=== PATIENT | female | born 1985 | race Caucasian/White ===

== ENCOUNTER → 2020-12-19 | Outpatient (CLI) | payer OTHER ==
[~2020-12-19] MED LIST: ACET325UDC PO; ACETAMINOPHEN160 MG SL; AMOCLA250S PO; CALCA500CH PO; CODACEE120 PO; HYDACE5 PO; IBUP100S PO; IBUP800 PO; MORP30; MULVITMIND PO; Prevacid Soluta30 MG PO; SACC250C PO; WHEELCHAIR USE
[2020-12-19 11:45] LABS: Source, Urine Clean Catch
[2020-12-19 13:29] LABS: Appearance, Urine Clear (Clear); Bilirubin, Urine Neg (Neg); Blood, Urine Neg (Neg); Color, Urine Yellow (P-Yellow); Glucose Qualitative, Urine Neg (Neg); Ketones, Urine Neg (Neg); Leukocyte Esterase, Urine Neg (Neg); Nitrite, Urine Neg (Neg); Protein, Urine Neg (Neg); Specific Gravity, Urine 1.015 (1.003-1.022); Urobilinogen, Urine NORM (Normal)
== END | disposition home or self-care (01) ==
LOC: LAB SHORT 11:42 → LAB 11:42
PROVIDERS: Family Medicine
DX: R30.9 Painful micturition, unspecified (principal)
CPT/HCPCS: 81003

== ENCOUNTER 2023-01-13 06:37 | Day surgery (SDC) | payer OTHER ==
[~2023-01-13] VITALS: Ht 139.7 cm; Wt 57.2 kg
[2023-01-13] MEDS ORDERED: NAC600 MG (06:51)
[2023-01-13] MEDS ORDERED: MINASTRIN 24 F1 EAC1 (06:52)
[2023-01-13 09:03] VITALS: BP 127/79
--- NOTE | 2023-01-13 09:15 | NUR ---
01/13/23 0915 Alis Shelby PT AWAKE, ALERT, ORIENTED AFTER PROCEDURE. CARMELITA LUNG SOUNDS WITH CRACKLES. O2 SATS MAINTAINIG 90-91% ON RA WITH NORMAL BREATHING. INCREASING TO 95-97% WITH DEEP BREATHING AND COUGHING. PER DR GAUTHIER, ALBUTEROL NEBULIZER TREATMENT DONE. O2 SATS MAINTAINING 98-100%. LUNG SOUNDS CLEARER. INCENTIVE SPIROMETER GIVEN AND MOM STATES THEY KNOW HOW TO USE IT.
--- NOTE | 2023-01-13 15:00 | NUR ---
01/13/23 1500 Madisyn De La Fuente PT BEGAN TO QUICKLY DESAT 2 MINUTES INTO PROCEDURE. BEGAN BAGGING PT AND CALLED FOR ANESTHESIA. PT O2 SAT AT 55% AND PT WAS CYANTOTIC. BAGGING WAS NOT EFFECTIVE IN RAISING O2 LEVELS. DR GOINS IN ROOM, PLACES LMA. PREPARING FOR INTUBATION, BUT O2 LEVELS BEGAN TO INCREASE. PT RETURNS TO BASELINE VITALS AND SKIN COLOR. PT WAKES AND LMA IS REMOVED, PT OPENS EYES AND SHORTLY BEGINS TO RESPOND TO QUESTIONS. DR GAUTHIER TO SPEAK WITH MOM, AND PT GIVEN DUONEB. CARE TURNED OVER TO ROSMERY FITZPATRICK RN FOR BREAK FOR PRIMARY RN. PT STABLE AT TRANSFER OF CARE/
== END 2023-01-13 09:17 | disposition home or self-care (01) ==
LOC: ORSCSDS 06:37
PROVIDERS: Internal Medicine Gastroenterology
PROC: 0DJ08ZZ Inspection of Upper Intestinal Tract, Via Natural or Artificial Opening Endoscopic (ICD-10-PCS; principal; 2023-01-13 08:00)
DX: R13.10 Dysphagia, unspecified (principal); G47.33 Obstructive sleep apnea (adult) (pediatric); Q87.2 Congenital malformation syndromes predominantly involving limbs; Z98.84 Bariatric surgery status; I42.2 Other hypertrophic cardiomyopathy; Z79.899 Other long term (current) drug therapy
CPT/HCPCS: J2704; J7120

== ENCOUNTER → 2023-03-30 | Outpatient (CLI) | payer OTHER ==
[~2023-03-30] MED LIST changes: +MINASTRIN 24 F1 EAC1; +NAC600 MG
[2023-03-30 12:52] LABS: Source, Urine Clean Catch
[2023-03-30 13:13] LABS: Bacteria Few /hpf; Mucus Light (0-Heavy); Red Blood Cells, Urine 0-2 /hpf (0-2); Squamous Epithelial Cells Few /hpf (Few)
== END ==
LOC: LAB 10:09 → LAB SHORT 10:09
PROVIDERS: Family Medicine
DX: R82.90 Unspecified abnormal findings in urine (principal)
CPT/HCPCS: 81015; 87077; 87086; 87147; 87186

== ENCOUNTER 2023-08-11 02:07 | Day surgery (SDC) | payer OTHER ==
[~2023-08-11 02:07] MED LIST changes: +NORT10S PO; +Sod Ferric Gluc Complx/Sucrose 125 MG in NS 100 ML IV SCH
[2023-08-11 15:13] VITALS: BP 144/74
== END 2023-08-11 16:12 | disposition home or self-care (01) ==
LOC: ATC 02:07
DX: D50.9 Iron deficiency anemia, unspecified (principal); G47.33 Obstructive sleep apnea (adult) (pediatric); K21.9 Gastro-esophageal reflux disease without esophagitis
CPT/HCPCS: 96365; J2916

== ENCOUNTER 2023-08-23 01:21 | Day surgery (SDC) | payer OTHER ==
[~2023-08-23 01:21] MED LIST changes: -Sod Ferric Gluc Complx/Sucrose 125 MG in NS 100 ML IV SCH
[2023-08-23] MEDS ORDERED: Sod Ferric Gluc Complx/Sucrose 125 MG in NS 100 ML IV SCH (06:00)
[2023-08-23 15:36] VITALS: BP 137/72
== END 2023-08-23 16:50 | disposition home or self-care (01) ==
LOC: ATC 01:21
DX: D50.9 Iron deficiency anemia, unspecified (principal)
CPT/HCPCS: 96365; J2916

== ENCOUNTER 2023-08-25 13:50 | Inpatient (IN) | payer OTHER ==
[~2023-08-25] VITALS: Ht 139.7 cm; Wt 57.6 kg
[2023-08-25 14:33] LABS: BASOPHILS ABSOLUTE AUTO 0.05 K/mm3 (0.00-0.23); BASOPHILS PERCENT AUTO 1 % (0-2); EOSINOPHILS PERCENT AUTO 1 % (0-6); Hematocrit 45.9 % (33.0-51.0); Hemoglobin 14.5 g/dL (11.5-16.0); IMMATURE GRAN ABSOLUTE AUTO 0.02 K/mm3 (0.00-0.10); IMMATURE GRAN PERCENT AUTO 0 % (0-1); LYMPHOCYTES ABSOLUTE AUTO 3.38 K/mm3 (0.84-5.20); LYMPHOCYTES PERCENT AUTO 37 % (21-46); MONOCYTES ABSOLUTE AUTO 0.59 K/mm3 (0.16-1.47); MONOCYTES PERCENT AUTO 6 % (4-13); Mean Corpuscular HGB 29.8 pg (26.0-34.0); Mean Corpuscular HGB Conc 31.6 g/dL (31.5-36.5); Mean Corpuscular Volume 94 fL (80-100); Mean Platelet Volume 11.2 fL (9.1-12.4); NEUTROPHILS ABSOLUTE AUTO 5.04 K/mm3 (1.96-9.15); NEUTROPHILS PERCENT AUTO 55 % (41-73); Platelet Count 189 K/mm3 (150-400); RDW Coefficient Variation 14.8 % (11.7-14.2); RDW Standard Deviation 50.7 fL (35.1-46.3); Red Blood Cell Count 4.87 M/mm3 (3.80-5.20); White Blood Cell Count 9.18 K/mm3 (4.00-11.30)
[2023-08-25 14:51] LABS: Albumin, Blood 3.9 g/dL (3.4-5.0); Albumin/Globulin Ratio 1.2 (0.8-1.8); Bilirubin, Total 0.7 mg/dL (0.1-1.0); Bun/Creatinine Ratio 23.8 (12.0-20.0); Calcium, Blood 9.6 mg/dL (8.5-10.1); Creatinine, Blood 0.88 mg/dL (0.40-1.00); Globulin, Blood 3.3 g/dL (2.2-4.0); Potassium, Blood 4.3 mmol/L (3.5-5.5); Total Protein, Blood 7.2 g/dL (6.4-8.2)
[2023-08-25] MEDS ORDERED: LANSOPRAZOLE30 M1 PO (15:54)
[2023-08-25] MEDS ORDERED: NORETH EE FE PO (15:54)
[2023-08-25] MEDS ORDERED: Nortriptyl10 MG/5 ML PO (15:54)
[2023-08-25] MEDS ORDERED: NS 1,000 ML IV SCH (17:30)
[2023-08-25] MEDS ORDERED: Aspirin 325 MG Tab PO ONE (17:30)
[2023-08-25] MEDS ORDERED: Aspirin 81 MG Chew PO ONE (17:50)
[2023-08-25 18:10] LABS: Magnesium, Blood 2.5 mg/dL (1.6-2.4)
[2023-08-25 18:36] LABS: Influenza A, PCR NEGATIVE (NEGATIVE); Influenza B, PCR NEGATIVE (NEGATIVE); Resp Syncytial Virus, PCR NEGATIVE (NEGATIVE); SARS-Cov-2 (COVID-19) PCR, MMC NEGATIVE (NEGATIVE)
[2023-08-25] MEDS ORDERED: Ondansetron HCl 2 MG / ML 2ML Vial IV PRN (19:35)
[2023-08-25] MEDS ORDERED: Acetaminophen 325 MG TABLET PO PRN (19:35)
[2023-08-25] MEDS ORDERED: Furosemide 10 MG / ML 2ML Vial IV SCH (20:00)
[2023-08-25] MEDS ORDERED: N-Acetylcysteine 600 MG CAP PO SCH (21:00)
[2023-08-25 21:04] LABS: Thyroid Stimulating Hormone 0.615 uIU/mL (0.360-4.800)
[2023-08-25 21:23] VITALS: BP 170/117
[2023-08-25] MEDS ORDERED: NAC600 MG PO (21:39)
[2023-08-25] MEDS ORDERED: Nortriptyline HCl 10 MG Cap PO ONE (22:30)
[2023-08-25] MEDS ORDERED: HydrALAZINE HCl 20 MG / ML 1ML Vial IV PRN (22:35)
[2023-08-25] MEDS ORDERED: Nitroglycerin 1 INCH/GM PKT TOP ONE (22:35)
[2023-08-25 23:01] VITALS: BP 181/112
[2023-08-25 23:28] VITALS: BP 179/115
--- NOTE | 2023-08-25 23:45 | NUR ---
TRANSFER NOTE THIS RN RECEIVED REPORT FOR PT VIA PHONE FROM MAURICE SMITH IN THE ED. PT TRANSFERRED TO PCU 4 AT 2115. PT ALERT AND ORIENTED X3. UNSURE OF YEAR. 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 MOTHER AT BEDSIDE FOR MED REC AND ADMISSION QUESTIONS. PT REPORTS DISCOMFORT AND FEELING THOUGH HER HEART IS BEATING "TOO HARD" WHILE POINTING TO MID STERNAL AREA. DENIES PAIN/PRESSURE. ST ON MONITOR WITH HR 110'S. ON RA WITH SPO2 >92%. TACHYPNEA NOTED WITH EXERTION. HTN NOTED WITH SBP 170'S. CALL PLACED TO PROVIDER SHAMIR REGARDING HTN. ORDERS PLACED PER MD FOR NITRO PASTE, HYDRALAZINE, AND HOME NORTRIPTYLINE DOSE. HYDRALAZINE PRN FOR SBP >180. PT GIVEN IV LASIX PRIOR TO ADMISSION TO ROOM. SBA TO BATHROOM. MOTHER STAYING WITH PATIENT AND ASSISTING WITH ADL'S. DIET ORDER CHANGED PER MD TO PATIENTS HOME REGIMINE OF PUREE DIET, ASPIRATION PRECAUTIONS, AND HONEY THICK LIQUIDS. PO MEDS TAKEN CRUSHED ONLY. HOME CPAP SET UP PER RT. BED IN LOWEST POSITION AND CALL LIGHT WITHIN REACH.
[2023-08-26 01:10] VITALS: BP 177/119
[2023-08-26 03:48] VITALS: BP 158/104
[2023-08-26 04:22] LABS: Bun/Creatinine Ratio 19.4 (12.0-20.0); Calcium, Blood 9.1 mg/dL (8.5-10.1); Creatinine, Blood 0.88 mg/dL (0.40-1.00); Magnesium, Blood 2.4 mg/dL (1.6-2.4); Potassium, Blood 4.5 mmol/L (3.5-5.5)
--- NOTE | 2023-08-26 04:49 | NUR ---
SHIFT SUMMARY SEE PREVIOUS NOTE. NO ACUTE CHANGES SINCE PREVIOUS NOTE. SBP 150'S. ST WITH HR 110-120. NO CHANGES TO REPORTED FEELINGS OF HEART RACING AND BEATING TOO "HARD". PT ON RA WHILE AWAKE. DID NOT TOLERATE CPAP LAST NIGHT. ATTEMPTED TO PUT PT ON 1-2L VIA NC TO MAINTAIN SPO2 >92%, PT NOT TOLERATING BUT SATS REMAIN >90% WHILE SLEEPING. MOTHER OF PT REMAINS AT BEDSIDE. SBA TO BATHROOM. BED IN LOWEST POSITION AND CALL LIGHT WITHIN REACH. THIS RN WILL REPORT TO ONCOMING DAYSHIFT RN.
[2023-08-26 07:30] VITALS: BP 168/100
[2023-08-26] MEDS ORDERED: Ketorolac Tromethamine 30mg Vial IV ONE (08:10)
[2023-08-26] MEDS ORDERED: HydrALAZINE HCl 20 MG / ML 1ML Vial IV PRN (08:10)
[2023-08-26] MEDS ORDERED: Enoxaparin 40 MG/0.4 ML SYR SC SCH (09:00)
[2023-08-26] MEDS ORDERED: Misc. Tablet PO SCH (09:00)
[2023-08-26] MEDS ORDERED: Lansoprazole 15 MG TAB.RAP.DR PO SCH (09:00)
--- NOTE | 2023-08-26 10:48 | NUR ---
Spiritual Care Referral Attempted. Pt. was in the restroom and is not present. Pts. father is at bedside and declined spiritual care visit unless a flying shear operator is available.
[2023-08-26 12:04] VITALS: BP 145/102
[2023-08-26] MEDS ORDERED: Irbesartan 150 MG Tab PT SCH (15:00)
[2023-08-26 15:55] VITALS: BP 149/103
[2023-08-26] MEDS ORDERED: Irbesartan 150 MG Tab PO SCH (16:00)
--- NOTE | 2023-08-26 17:00 | NUR ---
SHIFT SUMMARY: PT REMAINS ALERT AND ORIENTED X2-3. DEV DELAYED. MOM AT BEDSIDE. BP ELEVATED THROUGHOUT THIS SHIFT, HR ST 110'S. DENIES CP/PRESSURE. ECHO COMPLETED THIS AM. CARDIOLOGY CONSULTED. MEDICATIONS ADJUSTED, SEE EMAR. AFEBRILE. SPO2 >94% ON ROOM AIR. RESPIRATIONS EVEN AND UNLABROED AT REST, PT STATES SOB WITH ACTIVITY. PT WITH MINIMAL URINARY OUTPUT THIS SHIFT, LASIX INCREASED, SEE EMAR. PT SBA TO AND FROM BATHROOM, NO BM. MOM REMAINS AT BEDSIDE, PLAN TO STAY OVERNIGHT. BED IN LOW, CALL LIGHT IN REACH, WILL REPORT TO ONCOMING RN.
[2023-08-26] MEDS ORDERED: Furosemide 10 MG/ML 4ML Vial IV SCH (18:00)
[2023-08-26 19:44] VITALS: BP 152/70
[2023-08-26] MEDS ORDERED: Melatonin 5 MG Tablet PO PRN (20:00)
[2023-08-26] MEDS ORDERED: Carvedilol 6.25 MG Tab PO SCH (21:00)
[2023-08-26] MEDS ORDERED: Carvedilol 6.25 MG Tab PT SCH (21:00)
[2023-08-26] MEDS ORDERED: NORTRIPTYLINE 10 MG/5 ML PO SCH (21:00)
[2023-08-27 00:03] VITALS: BP 119/72
[2023-08-27 03:45] VITALS: BP 132/83
[2023-08-27 03:50] VITALS: BP 138/101
--- NOTE | 2023-08-27 04:26 | NUR ---
SHIFT SUMMARY ASSUMED CARE OF PT AT 1900. PT ORIENTED x2-3, REORIENTED TO TIME. DENIES PAIN/DISCOMFORT. AFEBRILE. SR - ST ON TELE. BP STABLE. SP02 > 90% ON RA. DYSPNEA WITH EXERTION NOTED, PT DENIES CHEST PAIN/PRESSURE, DENIES PALPITATIONS. PT TOLERATED PILLS CRUSHED WITH PUREE. UP TO RESTROOM WITH SBA. REQUESTED SLEEP MED THIS EVENING, RESTED WELL TONIGHT. NO ACUTE EVENTS OVERNIGHT.
[2023-08-27 04:56] LABS: BASOPHILS ABSOLUTE AUTO 0.06 K/mm3 (0.00-0.23); BASOPHILS PERCENT AUTO 1 % (0-2); EOSINOPHILS ABSOLUTE AUTO 0.48 K/mm3 (0.00-0.68); EOSINOPHILS PERCENT AUTO 5 % (0-6); Hematocrit 40.4 % (33.0-51.0); Hemoglobin 13.1 g/dL (11.5-16.0); IMMATURE GRAN ABSOLUTE AUTO 0.02 K/mm3 (0.00-0.10); IMMATURE GRAN PERCENT AUTO 0 % (0-1); LYMPHOCYTES ABSOLUTE AUTO 4.49 K/mm3 (0.84-5.20); LYMPHOCYTES PERCENT AUTO 49 % (21-46); MONOCYTES ABSOLUTE AUTO 0.58 K/mm3 (0.16-1.47); MONOCYTES PERCENT AUTO 6 % (4-13); Mean Corpuscular HGB 30.3 pg (26.0-34.0); Mean Corpuscular HGB Conc 32.4 g/dL (31.5-36.5); Mean Corpuscular Volume 94 fL (80-100); Mean Platelet Volume 11.3 fL (9.1-12.4); NEUTROPHILS ABSOLUTE AUTO 3.55 K/mm3 (1.96-9.15); NEUTROPHILS PERCENT AUTO 39 % (41-73); Platelet Count 158 K/mm3 (150-400); RDW Coefficient Variation 15.3 % (11.7-14.2); RDW Standard Deviation 51.1 fL (35.1-46.3); Red Blood Cell Count 4.32 M/mm3 (3.80-5.20); White Blood Cell Count 9.18 K/mm3 (4.00-11.30)
[2023-08-27 05:21] LABS: Albumin, Blood 3.1 g/dL (3.4-5.0); Anion Gap 9 mmol/L (3-11); Blood Urea Nitrogen 30 mg/dL (8-24); Bun/Creatinine Ratio 32.9 (12.0-20.0); CO2, Blood 30 mmol/L (21-32); Calcium, Blood 8.8 mg/dL (8.5-10.1); Chloride, Blood 108 mmol/L (98-108); Creatinine, Blood 0.91 mg/dL (0.40-1.00); Glomerular Filtration Rate 82 (60-); Glucose, Blood 89 mg/dL (70-99); Magnesium, Blood 2.4 mg/dL (1.6-2.4); Phosphorus, Blood 4.2 mg/dL (2.5-4.9); Potassium, Blood 3.8 mmol/L (3.5-5.5); Sodium, Blood 143 mmol/L (136-145)
[2023-08-27 08:12] VITALS: BP 139/87
[2023-08-27 08:59] VITALS: BP 139/87
[2023-08-27] MEDS ORDERED: FERROUS FUMARATE PO SCH (09:00)
[2023-08-27] MEDS ORDERED: Furosemide 40 MG Tab PO SCH (09:00)
[2023-08-27] MEDS ORDERED: ETHINYL ESTRADIOL PO SCH (09:00)
[2023-08-27] MEDS ORDERED: NORETHINDRONE PO SCH (09:00)
[2023-08-27] MEDS ORDERED: Acetaminophen650 M1 PO (09:08)
[2023-08-27] MEDS ORDERED: FURO40 PO (09:09)
[2023-08-27] MEDS ORDERED: Carvedilol12.5 MG PO (09:09)
[2023-08-27] MEDS ORDERED: MELATONIN5 M1 PO (09:10)
[2023-08-27] MEDS ORDERED: IRBE150 PO (09:10)
[2023-08-27] MEDS ORDERED: Empagliflozin 10 MG TAB PO SCH (09:30)
--- NOTE | 2023-08-27 11:07 | NUR ---
DISCHARGE: PT D/C FROM [facility] 4 @1024 VIA WHEECHAIR. DISCHARGE INSTRUCTIONS AND EDUCATION PROVIDED BOTH TO PT AND PT MOM. ALL BELONGINGS WITH PT.
== END 2023-08-27 10:59 | disposition home or self-care (01) | DRG 291 ==
LOC: ER 13:50 → PCU 13:51
PROVIDERS: Family Medicine; Internal Medicine Cardiovascular Disease; Nurse Practitioner Acute Care; Student in an Organized Health Care Education/Training Program; ADMIT Internal Medicine
PROC: 5A09357 Assistance with Respiratory Ventilation, Less than 24 Consecutive Hours, Continuous Positive Airway Pressure (ICD-10-PCS; principal; 2023-08-26)
DX: I11.0 Hypertensive heart disease with heart failure (principal); I50.21 Acute systolic (congestive) heart failure; Q87.2 Congenital malformation syndromes predominantly involving limbs; I35.0 Nonrheumatic aortic (valve) stenosis; D50.9 Iron deficiency anemia, unspecified; Z98.84 Bariatric surgery status; Z98.51 Tubal ligation status; Z98.890 Other specified postprocedural states; Z90.721 Acquired absence of ovaries, unilateral; Z79.899 Other long term (current) drug therapy; G47.33 Obstructive sleep apnea (adult) (pediatric); K20.0 Eosinophilic esophagitis; R77.8 Other specified abnormalities of plasma proteins; R19.5 Other fecal abnormalities
CPT/HCPCS: 0241U; 36415; 71046; 71260; 80048; 80053; 80069; 83690; 83735; 83880; 84443; 84484; 85025; 93005; 93010; 93306; 94762; 96361; 96372; 96374-59; 96375; 96376; 99285-25; A9270; G0378; J0360; J1650; J1885; J1940; J7030; Q9967

== ENCOUNTER 2023-08-30 02:40 | Day surgery (SDC) | payer OTHER ==
[~2023-08-30 02:40] MED LIST changes: +Acetaminophen650 M1 PO; +Carvedilol12.5 MG PO; +FURO40 PO; +IRBE150 PO; +LANSOPRAZOLE30 M1 PO; +MELATONIN5 M1 PO; +NAC600 MG PO; +NORETH EE FE PO; +Nortriptyl10 MG/5 ML PO; +Sod Ferric Gluc Complx/Sucrose 125 MG in NS 100 ML IV SCH
[2023-08-30 08:24] VITALS: BP 138/74
== END 2023-08-30 09:26 | disposition home or self-care (01) ==
LOC: ATC 02:40
DX: D50.9 Iron deficiency anemia, unspecified (principal)
CPT/HCPCS: 96365; J2916

== ENCOUNTER 2024-02-07 | Observation (INO) | payer OTHER ==
[~2024-02-07] VITALS: Ht 149.9 cm; Wt 60.7 kg
[2024-02-07] VITALS (57 sets, daily range): BP systolic 88–171; BP diastolic 68–129
[~2024-02-07] MED LIST changes: -Sod Ferric Gluc Complx/Sucrose 125 MG in NS 100 ML IV SCH
[2024-02-07 00:51] LABS: BASOPHILS ABSOLUTE AUTO 0.06 K/mm3 (0.00-0.23); BASOPHILS PERCENT AUTO 1 % (0-2); EOSINOPHILS ABSOLUTE AUTO 0.31 K/mm3 (0.00-0.68); EOSINOPHILS PERCENT AUTO 3 % (0-6); Hematocrit 32.5 % (33.0-51.0); Hemoglobin 10.9 g/dL (11.5-16.0); IMMATURE GRAN ABSOLUTE AUTO 0.12 K/mm3 (0.00-0.10); IMMATURE GRAN PERCENT AUTO 1 % (0-1); LYMPHOCYTES ABSOLUTE AUTO 1.94 K/mm3 (0.84-5.20); LYMPHOCYTES PERCENT AUTO 19 % (21-46); MONOCYTES ABSOLUTE AUTO 0.67 K/mm3 (0.16-1.47); MONOCYTES PERCENT AUTO 7 % (4-13); Mean Corpuscular HGB 31.4 pg (26.0-34.0); Mean Corpuscular HGB Conc 33.5 g/dL (31.5-36.5); Mean Corpuscular Volume 94 fL (80-100); NEUTROPHILS ABSOLUTE AUTO 7.17 K/mm3 (1.96-9.15); NEUTROPHILS PERCENT AUTO 70 % (41-73); NRBC ABSOLUTE 0.02 K/mm3 (0.00-0.02); NRBC Auto 0.2 /100 WBC (0.0-0.2); RDW Coefficient Variation 12.7 % (11.7-14.2); RDW Standard Deviation 42.4 fL (35.1-46.3); Red Blood Cell Count 3.47 M/mm3 (3.80-5.20); White Blood Cell Count 10.27 K/mm3 (4.00-11.30)
[2024-02-07 00:53] LABS: Mean Platelet Volume 10.3 fL (9.1-12.4); Platelet Count 218 K/mm3 (150-400)
[2024-02-07 01:04] LABS: Albumin, Blood 3.7 g/dL (3.4-5.0); Bilirubin, Total 0.8 mg/dL (0.1-1.0); Bun/Creatinine Ratio 27.2 (12.0-20.0); Calcium, Blood 9.5 mg/dL (8.5-10.1); Creatinine, Blood 0.55 mg/dL (0.40-1.00); Globulin, Blood 3.6 g/dL (2.2-4.0); Potassium, Blood 4.5 mmol/L (3.5-5.5); Total Protein, Blood 7.3 g/dL (6.4-8.2)
[2024-02-07] MEDS ORDERED: OLANZapine 10 MG Vial IM ONE (01:55)
[2024-02-07] MEDS ORDERED: Haloperidol Lactate Inj. 5 MG/ML Injection IM ONE (02:50)
[2024-02-07] MEDS ORDERED: LORazepam 2 MG/ML 1ML Injection IM ONE (02:50)
[2024-02-07] MEDS ORDERED: Ketamine HCl 100 MG / ML 5ML Vial IV ONE ×2 (03:00→04:25)
[2024-02-07 03:28] LABS: Source, Urine Clean Catch
[2024-02-07 03:31] LABS: Bilirubin, Urine Neg (Neg); Blood, Urine 2+ (Neg); Glucose Qualitative, Urine Neg (Neg); Ketones, Urine Neg (Neg); Leukocyte Esterase, Urine 1+ (Neg); Nitrite, Urine Neg (Neg); Protein, Urine 2+ (Neg); Urobilinogen, Urine 3+ (Normal)
[2024-02-07 03:37] LABS: Appearance, Urine Hazy (Clear); Color, Urine Yellow (P-Yellow)
[2024-02-07 03:44] LABS: Amorphous Mod (0-Heavy); Bacteria Few /hpf; Red Blood Cells, Urine 0-2 /hpf (0-2); Squamous Epithelial Cells Not Seen /hpf (Few); White Blood Cells, Urine 0-2 /hpf (0-5)
[2024-02-07 03:59] LABS: Thyroid Stimulating Hormone 0.258 uIU/mL (0.360-4.800)
[2024-02-07] MEDS ORDERED: FentaNYL Citrate 50 MCG/ML 2 ML Injection IV PRN ×2 (04:15→05:30)
[2024-02-07] MEDS ORDERED: Midazolam HCl 1MG / ML 2ML Vial IV ONE (05:00)
[2024-02-07] MEDS ORDERED: HYDROmorphone HCl/Pf 1MG SYR IV ONE (05:25)
[2024-02-07] MEDS ORDERED: Ondansetron HCl 2 MG / ML 2ML Vial IV PRN (05:30)
[2024-02-07] MEDS ORDERED: FLU VACC TS2024-25(6MOS UP)/PF 45 MCG/0.5 ML SYRINGE IM SCH (05:30)
[2024-02-07] MEDS ORDERED: ENOX60I SC (07:34)
[2024-02-07] MEDS ORDERED: ACET325 PO (07:34)
[2024-02-07] MEDS ORDERED: METO25 PO (07:36)
[2024-02-07] MEDS ORDERED: OXYC5 PO (07:36)
[2024-02-07] MEDS ORDERED: WARF7.5 PO (07:37)
[2024-02-07 07:39] LABS: International Normalized Ratio 2.7; Prothrombin Time Results 26.8 Sec (9.7-11.5)
[2024-02-07] MEDS ORDERED: MIRALAX17 GM PO (07:39)
[2024-02-07] MEDS ORDERED: AMOXICILLI400 MG/5 M PO (07:39)
[2024-02-07] MEDS ORDERED: CALTRATE 600 P1 EACH PO (07:40)
[2024-02-07] MEDS ORDERED: Naltrexone HCl50 MG PO (07:40)
[2024-02-07] MEDS ORDERED: THERA-D2000 UNIT PO (07:40)
[2024-02-07] MEDS ORDERED: MULVITA PO (07:40)
[2024-02-07] MEDS ORDERED: Aspir 8181 MG PO (08:29)
[2024-02-07] MEDS ORDERED: Enoxaparin 40 MG/0.4 ML SYR SC SCH (09:00)
--- NOTE | 2024-02-07 09:00 | NUR ---
ICU ADMISSION: REPORT RECEIVED FROM LUIS COLLAZO IN ED. PT ARRIVED TO ICU-15 AT APPROX 0840, WITH HER MOTHER, "VICKEY" AT BEDSIDE. AT TIME OF ARRIVAL, THE PT IS AWAKE FOR BRIEF PERIODS, ABLE TO COMMUNICATE WITH SHORT PHRASES. ORIENTED TO SELF, FAMILY & FOLLOWING DIRECTIONS. NARANJO, BEDREST R/T ALTERED MENTATION AT THIS TIME. LS CLEAR T/O, PT ON 2L NC FOR DESATS TO 80s WHILE SLEEPING. PT's MOTHER STS SHE WEARS CPAP WHILE SLEEPING AT HOME, FAMILY WILL BE BRINGING HOME CPAP IN. MONITOR SHOWS ST WITH HR 110-130s, HTN WITH DBP 100s. QTc PROLONGED, UPDATED EKG COMPLETED BY THIS RN & PLACED IN CHART. PT NPO AT THIS TIME R/T ENCEPHALOPATHY. ATTENDS CHANGED, IN PLACE FOR OCCASIONAL URINARY INCONTINENCE. SKIN CONDITION OVERALL INTACT, WITH WELL-HEALING SURGICAL SITES & BRUISING NOTED IN ASSESSMENT - PHOTOS IN CHART. Q2H REPOSITIONING TO MAINTAIN SKIN INTEGRITY. WILL CONTINUE TO MONITOR & UPDATE NEEDED.
[2024-02-07 10:26] LABS: Base Excess Venous 2.1 mmol/L; PCO2 Venous 40.2 mmHg (38-42); pH Blood Venous 7.43 (7.34-7.37)
[2024-02-07] MEDS ORDERED: JARDIANCE10 MG PO (11:29)
[2024-02-07] MEDS ORDERED: PERIDEX15 ML MM (11:31)
[2024-02-07] MEDS ORDERED: Esmolol HCL 2500mg/250ml Prema 250 ML IV PRN (12:45)
[2024-02-07] MEDS ORDERED: Ampicillin Sod/Sulbactam Sod 3 GM in NS 100 ML IV SCH (12:47)
[2024-02-07] MEDS ORDERED: NS 250 ML IV PRN (13:00)
[2024-02-07] MEDS ORDERED: OxyCODONE HCL 5 MG TAB PO PRN (14:20)
[2024-02-07] MEDS ORDERED: Warfarin Sodium 7.5 MG Tab PO ONE (18:00)
--- NOTE | 2024-02-07 19:57 | NUR ---
ASSUMED CARE OF PATIENT AT APPROXIMATELY 1900. REPORT RECEIVED FROM PATRICE Greenwood RN. PT RESTING IN BED WITH MOTHER AT BEDSIDE. CONTINOUS CARDIAC MONITORING SHOWS S-TACH WITH HR OF 123. BP 137/98 MAP 107. ON RA WITH O2 SATURATION OF 97%. ESMOLOL INFUSING AT 25 MCG/KG/MIN. TKO INFUSING. VSS AND NO ACUTE NEEDS IDENTIFIED AT THIS TIME. SEE SHIFT ASSESSMENT FOR FULL DETAILS.
[2024-02-08] VITALS (46 sets, daily range): BP systolic 110–152; BP diastolic 63–111
[2024-02-08 04:01] LABS: BASOPHILS ABSOLUTE AUTO 0.05 K/mm3 (0.00-0.23); BASOPHILS PERCENT AUTO 0 % (0-2); EOSINOPHILS ABSOLUTE AUTO 0.71 K/mm3 (0.00-0.68); EOSINOPHILS PERCENT AUTO 6 % (0-6); Hematocrit 30.1 % (33.0-51.0); Hemoglobin 9.9 g/dL (11.5-16.0); IMMATURE GRAN ABSOLUTE AUTO 0.08 K/mm3 (0.00-0.10); IMMATURE GRAN PERCENT AUTO 1 % (0-1); LYMPHOCYTES ABSOLUTE AUTO 3.85 K/mm3 (0.84-5.20); LYMPHOCYTES PERCENT AUTO 35 % (21-46); MONOCYTES ABSOLUTE AUTO 1.02 K/mm3 (0.16-1.47); MONOCYTES PERCENT AUTO 9 % (4-13); Mean Corpuscular HGB 31.3 pg (26.0-34.0); Mean Corpuscular HGB Conc 32.9 g/dL (31.5-36.5); Mean Corpuscular Volume 95 fL (80-100); Mean Platelet Volume 9.4 fL (9.1-12.4); NEUTROPHILS ABSOLUTE AUTO 5.44 K/mm3 (1.96-9.15); NEUTROPHILS PERCENT AUTO 49 % (41-73); Platelet Count 306 K/mm3 (150-400); RDW Coefficient Variation 13.1 % (11.7-14.2); RDW Standard Deviation 43.1 fL (35.1-46.3); Red Blood Cell Count 3.16 M/mm3 (3.80-5.20); White Blood Cell Count 11.15 K/mm3 (4.00-11.30)
[2024-02-08 04:26] LABS: Albumin, Blood 3.2 g/dL (3.4-5.0); Bilirubin, Total 0.5 mg/dL (0.1-1.0); Bun/Creatinine Ratio 17.3 (12.0-20.0); Calcium, Blood 9.2 mg/dL (8.5-10.1); Creatinine, Blood 0.58 mg/dL (0.40-1.00); Free Thyroxine 1.47 ng/dL (0.70-1.60); Globulin, Blood 3.1 g/dL (2.2-4.0); Potassium, Blood 3.7 mmol/L (3.5-5.5); Total Protein, Blood 6.3 g/dL (6.4-8.2); Triiodothyronine, Free 3.09 pg/mL (2.18-3.98)
[2024-02-08 04:33] LABS: International Normalized Ratio 3.62; Prothrombin Time Results 35.2 Sec (9.7-11.5)
[2024-02-08] MEDS ORDERED: Pantoprazole Sodium 40 MG Injection IV SCH (06:00)
--- NOTE | 2024-02-08 06:07 | NUR ---
SHIFT SUMMARY PT REMAINED ALERT AND ORIENTED X 4 T/O ENTIRETY OF SHIFT. ABLE TO FOLLOW COMMANDS, MAKE PURPOSEFUL MOVEMENTS, AND MAKE NEEDS KNOWN. AFEBRILE. MEDICATED PER EMAR FOR PAIN WITH GOOD BENEFIT. CONTINOUS CARDIAC MONITORING IN PLACE SHOWED SINUS TACH WITH HR IN 100-110'S. ESMOLOL TITRATED TO SBP GOAL OF 130'S, CURRENTLY INFUSING AT 25 MCG/KG/MIN. ON RA WITH O2 SATURATIONS > 92%. ON CPAP HS. UP TO BSC WITH SBA, ONE VOID AND ONE BM THIS SHIFT. TOLERATING HONEY THICK LIQUIDS AND MEDS CRUSHED IN APPLESAUCE. BRUSING TO R GROIN FROM PREVIOUS FEM ACCESS, BANDAID COVERING PREVIOUS CENTRAL LINE, 2 PUNCT. TO CHEST, AND MIDLINE CHEST DRESSING C/D/I. PG TO JUNIE, PIV TO RAC.
[2024-02-08] MEDS ORDERED: Acetaminophen 325 MG TABLET PO PRN (08:15)
[2024-02-08] MEDS ORDERED: Polyethylene Glycol 3350 17 gm PO PRN (08:20)
[2024-02-08] MEDS ORDERED: Cholecalciferol 1000 Unit Tablet (=25MCG) PO SCH (09:00)
[2024-02-08] MEDS ORDERED: Multivitamins 1 Tab PO SCH (09:00)
[2024-02-08] MEDS ORDERED: Metoprolol Tartrate 25 MG Tab PO SCH (09:00)
[2024-02-08] MEDS ORDERED: Aspirin 81 MG TabEC PO SCH (09:00)
[2024-02-08] MEDS ORDERED: Calcium/Vit D 600 mg-400 Unit Tab PO SCH (09:00)
[2024-02-08] MEDS ORDERED: Empagliflozin 10 MG TAB PO SCH (09:00)
[2024-02-08] MEDS ORDERED: Noreth A-ET Estra/FE Fumarate 1/20 Tab PO SCH (09:00)
--- NOTE | 2024-02-08 11:52 | NUR ---
"Spiritual Care Visit | Pt. Request Pt. is awake in a chair when she and her mother who is at bedside welcome my visit. Pt. displays evidence of a developmental disability, and is somewhat reserved. Faciliated a short life review with the Pts. mother. Prayed for the Pt. Will remain available ot the Pt. and family."
--- NOTE | 2024-02-08 15:52 | NUR ---
DISCHARGE SUMMARY PT IS A&OX4, RESPONDS TO QUESTIONS APPROPRIATLY. MOTHER IS AT BEDSIDE. PT IS ON ROOM AIR WITH SATS IN THE 90'S. DENIES SOB/CP. LUNG SOUNDS CLEAR. HR MAINTAINING 90-100'S, MAPS > 65, OFF ESMOLOL DRIP SINCE THIS AM. PT HAS VOIDED AND HAD BM THIS SHIFT, USING BEDSIDE COMMODE W/ SB ASSIST. MIDLINE DRESSING CHANGED PRIOR TO DISCHARGE. IV'S REMOVED, PT WAS WHEELED OUT TO MOTHERS CAR WITH ALL BELONGINGS. DISCHARGE PACKET WAS DISCUSSED AND QUESTIONS WERE ADDRESSED.
[2024-02-20] MEDS ORDERED: Naltrexone HCl50 MG PO (12:23)
[2024-02-20] MEDS ORDERED: LANS30EC PO (12:23)
== END 2024-02-08 15:30 | disposition home or self-care (01) ==
LOC: ER → ICUE 00:01 → ERHOLD 00:01 → ICUE 08:54
PROVIDERS: Emergency Medicine; Family Medicine; Physician Assistant; ADMIT Internal Medicine
DX: R07.89 Other chest pain (principal); R62.50 Unspecified lack of expected normal physiological development in childhood; Q87.2 Congenital malformation syndromes predominantly involving limbs; K21.00 Gastro-esophageal reflux disease with esophagitis, without bleeding; R05.9 Cough, unspecified; I10 Essential (primary) hypertension; R00.0 Tachycardia, unspecified; G47.30 Sleep apnea, unspecified; G93.40 Encephalopathy, unspecified; R41.82 Altered mental status, unspecified; Z99.89 Dependence on other enabling machines and devices; Z79.899 Other long term (current) drug therapy; Z88.8 Allergy status to other drugs, medicaments and biological substances
CPT/HCPCS: 36415; 71046; 71275; 80053; 81001; 82140; 82803; 83605; 83690; 83735; 83880; 84439; 84443; 84481; 84484; 85025; 85610; 85730; 93005; 93010; 93306; 96365; 96366; 96372-59; 96374-59; 96375; 96375-59; 96376; 96376-59; 99285-25; A9270; C1751; G0378; J0295; J1170; J1630; J2060; J2250; J2470; J3010; J7050; Q9967

== ENCOUNTER 2024-02-21 09:08 | Day surgery (SDC) | payer OTHER ==
[~2024-02-21] VITALS: Ht 139.7 cm; Wt 130.0 kg
[~2024-02-21 09:08] MED LIST changes: +ACET325 PO; +AMOXICILLI400 MG/5 M PO; +Aspir 8181 MG PO; +CALTRATE 600 P1 EACH PO; +ENOX60I SC; +JARDIANCE10 MG PO; +LANS30EC PO; +METO25 PO; +MIRALAX17 GM PO; +MULVITA PO; +Naltrexone HCl50 MG PO; +OXYC5 PO; +PERIDEX15 ML MM; +THERA-D2000 UNIT PO; +WARF7.5 PO
[2024-02-21 09:36] VITALS: BP 118/73
[2024-02-21] MEDS ORDERED: Thrombin 5000/Vial TOP ONE ×2 (10:20→10:35)
[2024-02-21] MEDS ORDERED: Midazolam HCl 1MG / ML 2ML Vial ONE (10:24)
[2024-02-21] MEDS ORDERED: NS 0 ML IV ONE (10:24)
[2024-02-21] MEDS ORDERED: FentaNYL Citrate 50 MCG/ML 2 ML Injection ONE (10:24)
[2024-02-21 11:13] VITALS: BP 131/86
--- NOTE | 2024-02-21 11:47 | NUR ---
PATIENT AWAKE AND ALERT W/O COMPLAINTS; PT'S EMERGENCY MEDICAL DISPATCHER/MOTHER AT BEDSIDE. VERBAL AND WRITTEN DC INFORMATION GIVEN TO MOTHER WITH CLEAR UNDERSTANDING. P;T DC'D HOME IN STABLE CONDITION AT 1145. RIGHT THIGHT/GROIN DRSG C/D/I.
== END 2024-02-21 12:55 | disposition home or self-care (01) ==
LOC: MHTC 09:08
DX: I72.4 Aneurysm of artery of lower extremity (principal); Z79.82 Long term (current) use of aspirin
CPT/HCPCS: 36002; 76937; 76998; C1894; J2250; J3010; J7040

== ENCOUNTER → 2024-02-27 | Outpatient (CLI) | payer OTHER ==
[2024-02-27 15:59] LABS: Stool Occult Bld Immuno 1 Positive (NEGATIVE)
== END ==
LOC: LAB SHORT 08:29 → LAB 08:29
PROVIDERS: Family Medicine
DX: D50.9 Iron deficiency anemia, unspecified (principal)
CPT/HCPCS: 82274

== ENCOUNTER → 2024-04-22 | Outpatient (CLI) | payer OTHER ==
[2024-04-22 13:24] LABS: International Normalized Ratio 2.04; Prothrombin Time Results 20.7 Sec (9.7-11.5)
== END | disposition home or self-care (01) ==
LOC: LAB 12:01 → LAB SHORT 12:01
PROVIDERS: Physician Assistant
DX: Z51.81 Encounter for therapeutic drug level monitoring (principal); Z79.01 Long term (current) use of anticoagulants
CPT/HCPCS: 85610

== ENCOUNTER 2024-08-10 03:53 | Day surgery (SDC) | payer OTHER ==
[~2024-08-10 03:53] MED LIST changes: +Sod Ferric Gluc Complx/Sucrose 125 MG in NS 100 ML IV SCH
[2024-08-10 16:01] VITALS: BP 121/80
== END 2024-08-10 17:10 | disposition home or self-care (01) ==
LOC: ATC 03:53
DX: D50.0 Iron deficiency anemia secondary to blood loss (chronic) (principal); I11.0 Hypertensive heart disease with heart failure; I50.22 Chronic systolic (congestive) heart failure; K21.9 Gastro-esophageal reflux disease without esophagitis; G47.33 Obstructive sleep apnea (adult) (pediatric); F42.8 Other obsessive-compulsive disorder; Z88.4 Allergy status to anesthetic agent
CPT/HCPCS: 96365; J2916

== ENCOUNTER 2024-08-17 02:48 | Day surgery (SDC) | payer OTHER ==
[2024-08-17 15:05] VITALS: BP 152/95
== END 2024-08-17 16:27 | disposition home or self-care (01) ==
LOC: ATC 02:48
DX: D50.0 Iron deficiency anemia secondary to blood loss (chronic) (principal)
CPT/HCPCS: 96365; J2916

== ENCOUNTER 2024-08-22 01:58 | Day surgery (SDC) | payer OTHER ==
[~2024-08-22 01:58] MED LIST changes: -Sod Ferric Gluc Complx/Sucrose 125 MG in NS 100 ML IV SCH
[2024-08-22] MEDS ORDERED: Sod Ferric Gluc Complx/Sucrose 125 MG in NS 100 ML IV SCH (06:00)
[2024-08-22 13:59] VITALS: BP 130/79
== END 2024-08-22 15:18 | disposition home or self-care (01) ==
LOC: ATC 01:58
DX: D50.0 Iron deficiency anemia secondary to blood loss (chronic) (principal); F90.9 Attention-deficit hyperactivity disorder, unspecified type; G47.33 Obstructive sleep apnea (adult) (pediatric); I50.22 Chronic systolic (congestive) heart failure; K04.7 Periapical abscess without sinus; F42.9 Obsessive-compulsive disorder, unspecified
CPT/HCPCS: 96365; J2916

== ENCOUNTER 2024-09-06 01:26 | Day surgery (SDC) | payer OTHER ==
[~2024-09-06 01:26] MED LIST changes: +Sod Ferric Gluc Complx/Sucrose 125 MG in NS 100 ML IV SCH
[2024-09-06 14:09] VITALS: BP 117/75
== END 2024-09-06 15:15 | disposition home or self-care (01) ==
LOC: ATC 01:26
DX: D50.0 Iron deficiency anemia secondary to blood loss (chronic) (principal); I11.0 Hypertensive heart disease with heart failure; I50.20 Unspecified systolic (congestive) heart failure; K21.9 Gastro-esophageal reflux disease without esophagitis; E66.9 Obesity, unspecified; Z68.31 Body mass index [BMI] 31.0-31.9, adult; Z88.8 Allergy status to other drugs, medicaments and biological substances; Z79.899 Other long term (current) drug therapy; Z79.82 Long term (current) use of aspirin; Z79.01 Long term (current) use of anticoagulants
CPT/HCPCS: 96365; J2916

== ENCOUNTER 2024-09-14 03:56 | Day surgery (SDC) | payer OTHER ==
[~2024-09-14 03:56] MED LIST changes: -Sod Ferric Gluc Complx/Sucrose 125 MG in NS 100 ML IV SCH
[2024-09-14] MEDS ORDERED: Sod Ferric Gluc Complx/Sucrose 125 MG in NS 100 ML IV SCH (06:00)
[2024-09-14 14:04] VITALS: BP 123/75
== END 2024-09-14 15:12 | disposition home or self-care (01) ==
LOC: ATC 03:56
DX: D50.0 Iron deficiency anemia secondary to blood loss (chronic) (principal); I11.0 Hypertensive heart disease with heart failure; I50.9 Heart failure, unspecified; K21.9 Gastro-esophageal reflux disease without esophagitis; G47.33 Obstructive sleep apnea (adult) (pediatric); E66.9 Obesity, unspecified; Z68.31 Body mass index [BMI] 31.0-31.9, adult; Z88.8 Allergy status to other drugs, medicaments and biological substances; Z79.899 Other long term (current) drug therapy; Z79.84 Long term (current) use of oral hypoglycemic drugs
CPT/HCPCS: 96365; J2916